=== PATIENT | male | born 1980 | race Caucasian/White ===

== ENCOUNTER 2017-05-13 12:31 | Emergency (ER) | payer OTHER ==
[~2017-05-13] VITALS: Ht 193 cm; Wt 90.0 kg
[~2017-05-13 12:31] MED LIST: CLAR10TA7 PO; OMPR20CCR PO; ONDA1TAB16 PO; PREV30CA36 PO; VARE1PAK3 PO; Z.0.NO CURRENT MEDS
[2017-05-13] MEDS ORDERED: IOHEXOL 350 MG/ML 10 ML VIAL (for RAD DIAG) IVCONTRAST ONE (12:32)
[2017-05-13 12:33] VITALS: BP 127/78; PULSE 60; RESP 18; TEMP 98.9; O2SAT 99
[2017-05-13] MEDS ORDERED: SODIUM CHLOR 0.9% 1000 ML INJ 1,000 ML IV SCH (12:55)
[2017-05-13] MEDS ORDERED: KETOROLAC TROMETHAMINE 60 MG/2 ML (IM) VIAL IM ONE (13:00)
[2017-05-13] MEDS ORDERED: MORPHINE SULFATE 4 MG/ML INJ IV PUSH ONE (13:00)
--- NOTE | 2017-05-13 13:00 | PD ---
HPI Chief Complaint: Flank/Kidney Pain Time Seen by Provider: 12:46 Travel History International Travel<30 days: No Contact w/Intl Traveler<30days: No Traveled to known affect area: No History of Present Illness HPI 36y male presents to the ED complaining of right flank pain that started this morning. States he was laying in bed when he developed a sharp, intense pain that prompted him to urinate. Pain has been constant but fluctuating in terms of intensity since then. Says the pain is located in the right mid back and flank that radiates down to his lower back and to the anterior aspect of his pelvis. Rated 10/10, intermittent, sharp lasting minutes before decreasing in intensity. No palliative or provocative factors. No fevers, chills, nausea, vomiting, diarrhea. Last bowel movement was today that was normal except for decreased quantity. Denied hematuria until he gave us a sample today where he noticed a red-tinged urine. Denies chronic medical issues and medication use. Denies history of abdominal surgeries or any other surgeries. No history of kidney stones or thyroid disorders. PFSH Past Medical History Medical History: Denies Significant Hx Diminished Hearing: No ?: Not Past Surgical History Surgical History: No Previous Surgery Genitourinary Surgery: Yes (EXPLORATORY CHILD R/T BED WETTING) Social History Alcohol Use: No Tobacco Use: Yes (1 ppd) Substance Use: No Allergies-Medications (Allergen,Severity, Reaction): Coded Allergies: penicillin G (Unverified Allergy, Severe, throat swells, 10/24/16) Reported Meds & Prescriptions Reported Meds & Active Scripts Active Hydrocodone-Acetaminophen 5-325 mg Tab 1 Tab PO Q4H PRN 5 Days Flomax (Tamsulosin HCl) 0.4 Mg Cap 0.4 Mg PO HS Review of Systems Except as stated in HPI: all other systems reviewed are Neg Physical Exam Narrative GENERAL: Well-developed, well-nourished in mild to moderate distress, trouble finding position of comfort in bed SKIN: Focused skin assessment warm/dry. No rashes or lesions HEAD: Atraumatic. Normocephalic. EYES: Pupils equal and round. No scleral icterus. No injection or drainage. ENT: No nasal bleeding or discharge. Mucous membranes pink and moist. NECK: Trachea midline. No JVD. CARDIOVASCULAR: Regular rate and rhythm. No murmur appreciated. RESPIRATORY: No accessory muscle use. Clear to auscultation. Breath sounds equal bilaterally. GASTROINTESTINAL: Voluntary guarding present, no rebound tenderness. Right lower quadrant especially tender to palpation with abdominal rigidity. No masses or organomegaly. Right CVA tenderness MUSCULOSKELETAL: No obvious deformities. No clubbing. No cyanosis. No edema. NEUROLOGICAL: Awake and alert. No obvious cranial nerve deficits. Motor grossly within normal limits. Normal speech. PSYCHIATRIC: Appropriate mood and affect; insight and judgment normal. Data Data Last Documented VS Vital Signs Date Time Temp Pulse Resp B/P (MAP) Pulse Ox O2 Delivery O2 Flow Rate FiO2 05/13/17 15:51 16 99 104/65 (78) 05/13/17 14:32 99 Room Air 05/13/17 12:33 98.9 Orders Orders Complete Blood Count With Diff (05/13/17 12:55) Comprehensive Metabolic Panel (05/13/17 12:55) Lipase (05/13/17 12:55) Prothrombin Time / Inr (Pt) (05/13/17 12:55) Act Partial Throm Time (Ptt) (05/13/17 12:55) Urinalysis - C+S If Indicated (05/13/17 12:55) Ct Abd/Pel W Iv Contrast(Rout) (05/13/17 12:55) Iv Access Insert/Monitor (05/13/17 12:55) Ecg Monitoring (05/13/17 12:55) Oximetry (05/13/17 12:55) NPO (05/13/17 12:55) Sodium Chlor 0.9% 1000 Ml Inj (Ns 1000 M (05/13/17 12:55) Electrocardiogram (05/13/17 12:55) Ketorolac Inj (Toradol Inj) (05/13/17 13:00) Morphine Inj (Morphine Inj) (05/13/17 13:00) Iohexol 350 Inj (Omnipaque 350 Inj) (05/13/17 12:32) Ed Discharge Order (05/13/17 15:29) Labs Laboratory Tests Test 05/13/17 13:05 05/13/17 14:28 White Blood Count 8.2 TH/MM3 Red Blood Count 5.35 MIL/MM3 Hemoglobin 16.0 GM/DL Hematocrit 46.3 % Mean Corpuscular Volume 86.5 FL Mean Corpuscular Hemoglobin 29.9 PG Mean Corpuscular Hemoglobin Concent 34.5 % Red Cell Distribution Width 12.4 % Platelet Count 178 TH/MM3 Mean Platelet Volume 8.4 FL Neutrophils (%) (Auto) 55.3 % Lymphocytes (%) (Auto) 33.2 % Monocytes (%) (Auto) 5.3 % Eosinophils (%) (Auto) 5.4 % Basophils (%) (Auto) 0.8 % Neutrophils # (Auto) 4.6 TH/MM3 Lymphocytes # (Auto) 2.7 TH/MM3 Monocytes # (Auto) 0.4 TH/MM3 Eosinophils # (Auto) 0.4 TH/MM3 Basophils # (Auto) 0.1 TH/MM3 CBC Comment DIFF FINAL Differential Comment Prothrombin Time 10.7 SEC Prothromb Time International Ratio 1.1 RATIO Activated Partial Thromboplast Time 24.3 SEC Blood Urea Nitrogen 7 MG/DL Creatinine 1.02 MG/DL Random Glucose 108 MG/DL Total Protein 7.6 GM/DL Albumin 4.2 GM/DL Calcium Level 9.1 MG/DL Alkaline Phosphatase 64 U/L Aspartate Amino Transf (AST/SGOT) 19 U/L Alanine Aminotransferase (ALT/SGPT) 21 U/L Total Bilirubin 0.4 MG/DL Sodium Level 142 MEQ/L Potassium Level 4.3 MEQ/L Chloride Level 108 MEQ/L Carbon Dioxide Level 28.7 MEQ/L Anion Gap 5 MEQ/L Estimat Glomerular Filtration Rate 83 ML/MIN Lipase 102 U/L Urine Color YELLOW Urine Turbidity CLEAR Urine pH 6.5 Urine Specific [place] 1.021 Urine Protein 30 mg/dL Urine Glucose (UA) NEG mg/dL Urine Ketones NEG mg/dL Urine Occult Blood MOD Urine Nitrite NEG Urine Bilirubin NEG Urine Urobilinogen 2.0 MG/DL Urine Leukocyte Esterase NEG Urine RBC /hpf Urine WBC 2 /hpf Urine Bacteria RARE /hpf Urine Mucus MANY /lpf Microscopic Urinalysis Comment CULT NOT INDICATED MDM Medical Decision Making Medical Screen Exam Complete: Yes Emergency Medical Condition: Yes Differential Diagnosis Nephrolithiasis, appendicitis, gastritis, cholecystitis Narrative Course 36-year-old male presents emergency department complaining of right back and flank pain with radiation to the groin since this morning upon waking. Patient states that the onset was rather sudden, colicky description. No prior history of the symptoms. No chronic medical issues medication use. No past surgical history. A single episode of hematuria that occurred today while patient was giving a sample of urine. Vital signs are stable. Physical exam demonstrates a well-developed, well-nourished 36-year-old male in mild to moderate distress. Difficulty finding position of comfort in bed. Right CVA tenderness, right lower quadrant and right-sided abdominal tenderness to palpation, normoactive bowel sounds. EKG shows sinus rhythm without STEMI changes. Labs and imaging studies ordered. Toradol and morphine administered for pain. 1 L normal saline IV bolus. Last Impressions Abdomen/Pelvis CT 05/13/17 1255 Signed Impressions: Service Date/Time: Saturday, May 13, 2017 14:50 - CONCLUSION: 1. Mild right hydronephrosis and hydroureter with a 3.2 mm stone at the ureterovesical junction. Hal Sandoval MD Patient says his pain has greatly improved after medications. Patient will be discharged with Flomax and hydrocodone for pain. Advised follow-up with the primary care physician and consider urology for evaluation of his kidney stones. Ensure adequate fluid intake. Consider reducing sweet tea consumption. Patient states understanding will comply. Diagnosis Primary Impression: Nephrolithiasis Referrals: Urologist Additional Instructions: Ensure adequate fluid intake and proper nutrition. Take medications as prescribed. Follow-up with your primary care physician and consider urology for kidney stone. Scripts Hydrocodone-Acetaminophen (Hydrocodone-Acetaminophen) 5-325 mg Tab 1 TAB PO Q4H Y for PAIN for 5 Days, #15 TAB 0 Refills Prov: Sofi Linder DO 05/13/17 Tamsulosin (Flomax) 0.4 Mg Cap 0.4 MG PO HS for Manage Prostate Problems, #14 CAP 0 Refills Prov: Sofi Linder DO 05/13/17 Disposition: 01 DISCHARGE HOME Condition: Stable Dunia Erazo May 13, 2017 13:00
[2017-05-13 13:09] VITALS: RESP 16; O2SAT 98
[2017-05-13 13:33] LABS: AUTOMATED NEUTROPHIL # 4.6 TH/MM3 (1.8-7.7); BASOPHIL # 0.1 TH/MM3 (0-0.2); BASOPHIL % 0.8 % (0.0-2.0); EOSINOPHIL # 0.4 TH/MM3 (0-0.4); EOSINOPHIL % 5.4 % (0.0-4.0); HEMATOCRIT 46.3 % (39.0-51.0); LYMPH % 33.2 % (9.0-44.0); LYMPHOCYTE # 2.7 TH/MM3 (1.0-4.8); MEAN CELL VOLUME 86.5 FL (80.0-100.0); MEAN CORPUSCULAR HEMOGLOBIN 29.9 PG (27.0-34.0); MEAN CORPUSCULAR HGB CONC 34.5 % (32.0-36.0); MEAN PLATELET VOLUME 8.4 FL (7.0-11.0); MONO % 5.3 % (0.0-8.0); MONOCYTE # 0.4 TH/MM3 (0-0.9); NEUT % 55.3 % (16.0-70.0); PLATELET COUNT 178 TH/MM3 (150-450); RED BLOOD COUNT 5.35 MIL/MM3 (4.50-5.90); RED CELL DISTRIBUTION WIDTH 12.4 % (11.6-17.2); WHITE BLOOD COUNT 8.2 TH/MM3 (4.0-11.0)
[2017-05-13 13:49] LABS: INTERNATIONAL NORMALIZED RATIO 1.1 RATIO; PROTHROMBIN TIME - PATIENT 10.7 SEC (9.8-11.6)
[2017-05-13 13:59] LABS: ALBUMIN 4.2 GM/DL (3.4-5.0); ALKALINE PHOSPHATASE 64 U/L (45-117); ALT (GPT) 21 U/L (12-78); AST (GOT) 19 U/L (15-37); BLOOD UREA NITROGEN 7 MG/DL (7-18); CALCIUM 9.1 MG/DL (8.5-10.1); CHLORIDE 108 MEQ/L (98-107); CREATININE 1.02 MG/DL (0.60-1.30); GLOMERULAR FILTRATION RATE 83 ML/MIN (>89); GLUCOSE,RANDOM 108 MG/DL (74-106); SODIUM (NA) 142 MEQ/L (136-145); TOTAL BILIRUBIN ADULT 0.4 MG/DL (0.2-1.0); TOTAL PROTEIN 7.6 GM/DL (6.4-8.2)
[2017-05-13 14:00] LABS: BICARBONATE 28.7 MEQ/L (21.0-32.0)
[2017-05-13 14:32] VITALS: BP 94/55; PULSE 64; RESP 18; O2SAT 99
[2017-05-13 14:43] LABS: BACTERIA, URINE RARE /hpf; BILIRUBIN, URINE NEG (NEG); BLOOD, URINE MOD (NEG); GLUCOSE,URINE NEG (NEG); KETONE, URINE NEG (NEG); MUCUS URINE MANY /lpf (OCC); NITRITE,URINE NEG (NEG); PH, URINE 6.5 (5.0-8.5); URINE COLOR YELLOW (YELLW/STRAW); URINE LEUKOCYTE ESTERASE NEG (NEG)
--- NOTE | 2017-05-13 15:09 | RADRPT ---
EXAM DATE/TIME: 05/13/2017 14:50 [facility] COMPARISON: No previous studies available for comparison. INDICATIONS : Right flank and right pelvic pain. Evaluate for appendicitis, nephrolithiasis. IV CONTRAST: 100 cc Omnipaque 350 (iohexol) IV ORAL CONTRAST: No oral contrast ingested. RADIATION DOSE: 7.97 CTDIvol (mGy) MEDICAL HISTORY : None SURGICAL HISTORY : None. ENCOUNTER: Initial ACUITY: 1 day PAIN SCALE: 8/10 LOCATION: Right flank TECHNIQUE: Volumetric scanning of the abdomen and pelvis was performed. Using automated exposure control and ad justment of the mA and/or kV according to patient size, radiation dose was kept as low as reasonably achievable to obtain optimal diagnostic quality images. DICOM format image data is available electro nically for review and comparison. FINDINGS: The lung bases are clear. Osseous structures are intact. No pleural or pericardial effusions. Liver, gallbladder, spleen, pancreas, adrenal glands are unremarkable. Left kidney unremarkable. There is mi ld right hydronephrosis and slight ureteral dilatation. There is a calculus noted at the right ureter ovesical junction on axial image #90 measuring 3.2 mm. A few scattered sigmoid diverticuli are presen t. The appendix is normal. No adenopathy. CONCLUSION: 1. Mild right hydronephrosis and hydroureter with a 3.2 mm stone at the ureterovesical junction. Hal Sandoval MD on May 13, 2017 at 15:05 Board Certified Radiologist. This report was verified electronically.
[2017-05-13] MEDS ORDERED: HYDR-3516 PO (15:22)
[2017-05-13] MEDS ORDERED: TAMS5CAP PO (15:22)
[2017-05-13 15:51] VITALS: BP 104/65
--- NOTE | 2017-05-14 13:28 | EKG ---
Date Performed: 05/13/2017 Time Performed: 13:31:52 PTAGE: 36 years EKG: Sinus rhythm WITH SINUS ARRHYTHMIA NORMAL ECG PREVIOUS TRACING : 07/01/1998 07.08 Since the prior tracing, there has been no significant do DOCTOR: Yuan [place] Interpretating Date/Time 05/14/2017 13:26:52
== END 2017-05-13 15:52 | disposition home or self-care (01) ==
LOC: NEPC 12:31
DX: N13.2 Hydronephrosis with renal and ureteral calculous obstruction (principal); F17.200 Nicotine dependence, unspecified, uncomplicated; I49.8 Other specified cardiac arrhythmias
CPT/HCPCS: 74177; 80053; 81001; 83690; 85025; 85610; 85730; 93005; 96361; 96372; 96374; 99285; J1885; J2270; J7030; Q9967